=== PATIENT | female | born 1965 | race Caucasian/White ===

== ENCOUNTER → 2024-12-30 | Day surgery (SDC) | payer OTHER ==
[~2024-12-30] MED LIST: ALBUTEROL0.63 MG/3 NEB; FAMOTIDINE20 MG PO; GLUCAGON FOR INJ 1 MG VIAL ONE; LEVOTHYROXINE50 MCG PO; LIDOCAINE HCL 2% LOCAL INJ 5 ML SDV VIAL INJ ONE; MIDAZOLAM HCL 2 MG/2 ML VIAL ONE; PROPOFOL IV EMULSION 10 MG/ML 20 ML VIAL ONE
[2024-12-30 13:40] VITALS: BP 114/58; PULSE 75; RESP 16; O2SAT 98
[2024-12-30] MEDS: LACTATED RINGER'S 1,000 ML ONE (14:25)
== END | disposition home or self-care (01) ==
LOC: OR 09:25
PROVIDERS: ATTEND Internal Medicine Gastroenterology
DX: Z12.11 Encounter for screening for malignant neoplasm of colon (principal); D12.3 Benign neoplasm of transverse colon; D12.2 Benign neoplasm of ascending colon; D12.4 Benign neoplasm of descending colon; K31.7 Polyp of stomach and duodenum; K29.70 Gastritis, unspecified, without bleeding; K63.89 Other specified diseases of intestine; K44.9 Diaphragmatic hernia without obstruction or gangrene; K21.9 Gastro-esophageal reflux disease without esophagitis; K64.1 Second degree hemorrhoids; E03.9 Hypothyroidism, unspecified; K64.9 Unspecified hemorrhoids; F17.290 Nicotine dependence, other tobacco product, uncomplicated; Z91.048 Other nonmedicinal substance allergy status; Z01.810 Encounter for preprocedural cardiovascular examination; Z79.899 Other long term (current) drug therapy
CPT/HCPCS: 43239; 45381; 45384; 45385; 93005; J1610; J2003; J2250; J2704; J7121; 45378